=== PATIENT | female | born 1985 | race Caucasian/White ===

== ENCOUNTER 2016-12-20 12:14 | Outpatient (CLI) | payer OTHER ==
[2016-12-20 09:37] LABS: BUN 13 mg/dL (7-18); GFR (ESTIMATED) 84 ML/MIN (59-)
[~2016-12-20 12:14] MED LIST: CARDIZEM CD120 MG PO
--- NOTE | 2016-12-20 13:43 | RADIOLOGY REPORT PS360 ---
CHEST PORTABLE-PICC PLACEMENT CLINICAL INDICATION: PICC PLACEMENT ORDERING PHYSICIAN: DIANA FELIX MD PATIENT AGE: 31 years COMPARISON: None FINDINGS: Right upper extremity PICC line has been inserted. The tip Is in the region of the superior vena cava. Cardiovascular structures are unremarkable and the lungs are clear. No acute bony anomalies. IMPRESSION: PICC line tip in the region of the superior vena cava
--- NOTE | 2016-12-22 08:02 | RADIOLOGY REPORT PS360 ---
CTA HEART W/CONT CORONARY AGF HISTORY: Abnormal heart catheterization. 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 Confirmation needed. Evaluate for malignant course of the right coronary artery HYPERTENSION, CHEST PAIN, ABNORMAL HEART CATH-RT CORONARY ORDERING PHYSICIAN: DIANA FELIX MD PATIENT AGE: 31 years COMPARISON: None TECHNIQUE: Patient's heart rate initially was 60 or below therefore, no metoprolol was given to induce bradycardia. During the first contrast injection however, the patient's heart rate jumped to the 80s. 5 mg of metoprolol was then given an IV without incident and the patient's heart rate dropped again into the 50s. Once again however during contrast administration patient's heart rate jump to the lower 80s. There is therefore very limited. However, after analyzing multiple phases during both injections the data does answer the original question of the origin of the right coronary artery. 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 Unfortunately, no further data was able to be obtained secondary to the irregular heart rate and motion artifact. 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
== END 2016-12-20 15:25 | disposition home or self-care (01) ==
LOC: COP 12:14
PROVIDERS: Internal Medicine Cardiovascular Disease
PROC: 05HB33Z Insertion of Infusion Device into Right Basilic Vein, Percutaneous Approach (ICD-10-PCS; principal; 2016-12-20)
DX: R07.89 Other chest pain (principal); R06.00 Dyspnea, unspecified; K21.9 Gastro-esophageal reflux disease without esophagitis; R00.2 Palpitations; R94.39 Abnormal result of other cardiovascular function study; M79.604 Pain in right leg; Z82.49 Family history of ischemic heart disease and other diseases of the circulatory system
CPT/HCPCS: C1751; G0463; Q9967